=== PATIENT | male | born 1975 | race African-American/Black ===

== ENCOUNTER 2019-01-22 19:11 | Emergency (ER) | payer MEDICAID, SELFPAY ==
[2019-01-22 19:11] VITALS: BP 158/97; PULSE 84; RESP 16; TEMP 37; O2SAT 97; BMI 34.5
--- NOTE | 2019-01-22 19:28 | ED.VISSUMM ---
- ER Visit Summary Date of Service: 01/22/19 Chief Complaint: Pain in throat History of Present Illness: The patient is a 43 M who presents the emergency department with swelling sensation in his throat. Symptoms are present for 1 hour. He states this feels very similar to when he had an abscess in his throat. He states that prior to the hour before his arrival he felt fine. States is hard for him to swallow and feels like he is choking on something. He denies any significant medical problems other than chronic pain for which he uses medical marijuana. He does not smoke cigarettes. Physical Examination: Afebrile vital signs are stable Gen: Well-nourished well-developed Head: Normocephalic atraumatic Eyes: Perrl EOMI ENT: TMs clear no rhinorrhea moist mucous membranes there is no evidence of a retropharyngeal or peritonsillar abscess. There is no oral pharyngeal erythema. There is no tonsillar swelling or exudate. The uvula is edematous and elongated below the laceration the visualized part of the tongue. He is not drooling. He is able to lay back. there is no stridor Neck: Supple no lymphadenopathy no JVD nontender CVS: Regular rate rhythm no murmurs normal S1-S2 Respiratory: No distress clear to auscultation bilaterally chest nontender Abdomen: Soft nontender nondistended normal bowel sounds no masses Back: Nontender Extremity: Nontender no edema Skin: Normal color no rash Neuro: alert orientated ?3 CN II-XII intact normal strength sensation reflexes gait cerebellar Psych: Normal affect normal mood Emergency Department Course and Treatment: Patient will be given a dose of Decadron and Pepcid. He was instructed to take Benadryl at home. He was instructed on cold fluids. Return if worsening or concerns. Impression: 1. Uvulitis This note was generated with [employer] dictation software. It may contain incorrect words, spelling, and punctuation that were not noted in review of the chart prior to signing ED Disposition - Plan for ED Patient: Disposition: Home or Assisted Living Instructions: ED Uvulitis Referrals: Herber Velazquez MD [Primary Care Provider] - As Needed Additional Instructions: I would recommend you take Benadryl 25 mg every 6-8 hours for the next 2 days. I would also recommend Pepcid 20 mg twice a day. Drink plenty of ice cold fluids. return if worsening or concerns
[2019-01-22] MEDS: Famotidine 20 MG Tablet PO (19:30)
[2019-01-22] MEDS: dexAMETHasone 10 MG/ML Vial PO.IVFORM (19:30)
--- NOTE | 2019-01-22 19:32 | ED.DCSUM_ITS ---
- ER Visit Summary Date of Service: 01/22/19 Chief Complaint: Pain in throat History of Present Illness: The patient is a 43 M who presents the emergency department with swelling sensation in his throat. Symptoms are present for 1 hour. He states this feels very similar to when he had an abscess in his th roat. He states that prior to the hour before his arrival he felt fine. States is hard for him to swallow and feels like he is choking on something. He denies any significant medical problems other than chronic pain for which he uses medical marijuana. He does not smoke cigarettes. Physical Examination: Afebrile vital signs are stable Gen: Well-nourished well-developed Head: Normocephalic atraumatic Eyes: Perrl EOMI ENT: TMs clear no rhinorrhea moist mucous membranes there is no evidence of a retropharyngeal or peritonsillar abscess. There is no oral pharyngeal erythema. There is no tonsillar swelling or exudate. The uvula is edematous and elongated below the laceration the visualized part of the tongue. He is not drooling. He is able to lay back. there is no stridor Neck: Supple no lymphadenopathy no JVD nontender CVS: Regular rate rhythm no murmurs normal S1-S2 Respiratory: No distress clear to auscultation bilaterally chest nontender Abdomen: Soft nontender nondistended normal bowel sounds no masses Back: Nontender Extremity: Nontender no edema Skin: Normal color no rash Neuro: alert orientated ?3 CN II-XII intact normal strength sensation reflexes gait cerebellar Psych: Normal affect normal mood Emergency Department Course and Treatment: Patient will be given a dose of Decadron and Pepcid. He was instructed to take Benadryl at home. He was instructed on cold fluids. Return if worsening or concerns. Impression: 1. Uvulitis This note was generated with [employer] dictation software. It may contain incorrect words, spelling, and punctuation that were not noted in review of the chart prior to signing ED Disposition - Plan for ED Patient: Disposition: Home or Assisted Living Instructions: ED Uvulitis Referrals: Herber Velazquez MD [Primary Care Provider] - As Needed Additional Instructions: I would recommend you take Benadryl 25 mg every 6-8 hours for the next 2 days. I would also recommend Pepcid 20 mg twice a day. Drink plenty of ice cold fluids. return if worsening or concerns
[2019-01-22 19:34] VITALS: BP 180/78; PULSE 73; RESP 18; O2SAT 98
== END 2019-01-22 19:37 | disposition home or self-care (01) ==
PROVIDERS: Emergency Provider Emergency Medicine; Family Provider Family Medicine; PCP Family Medicine
DX: K12.2 Cellulitis and abscess of mouth (principal)
CPT/HCPCS: 99283

== ENCOUNTER 2019-06-17 23:18 | Emergency (ER) | payer OTHER, MEDICAID, SELFPAY ==
[2019-06-17 23:19] VITALS: BP 140/83; PULSE 88; RESP 18; TEMP 36.7; O2SAT 98; BMI 34.5
--- NOTE | 2019-06-17 23:31 | ED.VIS.GEN ---
History of Present Illness Chief Complaint: Abd Pain Narrative: Patient is a 44-year-old male who presents with abdominal pain. He complains of sharp and burning left lower quadrant abdominal pain for 2 to 3 days. He has also been having diarrhea he estimates 8 episodes yesterday and about 3 today. He noticed a small amount of bright red blood in his stool today. No fevers. He was mildly nauseated yesterday but no vomiting. He does have a history of recurrent diverticulitis with 2 prior bowel resections in 2009 and 2016. He had a bowel perforation in 2009 related to diverticulitis. He currently uses medical marijuana but takes no daily medications. Past Medical History - Allergies and Home Meds Allergies/Adverse Reactions: Allergies No Known Allergies Allergy (Verified 01/22/19 19:11) Primary Care Physician: Herber Velazquez MD [Primary Care Provider] - Past Medical History: None Surgical History: appendectomy, colectomy Smoking Status: Never smoker Review of Systems All systems negative except as indicated General: Denies: Fever Cardiovascular: Denies: Chest pain Respiratory: Denies: Dyspnea Gastrointestinal: Reports: Abdominal pain, Nausea, Diarrhea, Hematochezia. Denies: Vomiting Physical Exam Vital Signs/Narrative: Vital Signs Temp Pulse Resp BP Pulse Ox 06/17/19 23:19 98.0 F 88 18 140/83 H 98 Inital Vital Signs reviewed: Yes General: Well nourished Head: Normocephalic Eyes: EOMI ENT: Moist mucous membranes Cardiovascular: Regular rate, Regular rhythm Respiratory: No distress, CTA bilaterally Abdomen: Soft, Nontender, Nondistended, - - Laparotomy scar noted, no reproducible tenderness Skin: Normal color Neurological: Alert Psychological: Normal affect Diagnostic/Tx/Re-eval Impressions Abdomen/Pelvis CT 06/18/19 23:30 IMPRESSION: Findings suggestive of enterocolitis. Status post appendectomy. Scattered diverticulosis with no focal diverticulitis. No bowel obstruction. Electronically Signed: Nancy Mcdowell MD at 1:46 EDT , Service support , 06/18/19 23:30 Abdomen/Pelvis WITH Contrast [CT] Stat Laboratory Results 06/17/19 06/17/19 06/17/19 23:38 23:38 23:46 WBC 11.1 H RBC 4.94 Hgb 15.1 Hct 44.1 MCV 89.3 MCH 30.6 MCHC 34.2 RDW Std Deviation 42.8 RDW Coeff of Annie 13.1 Plt Count 279 MPV 9.4 Immature Gran % (Auto) 0.400 Neut % (Auto) 42.3 L Lymph % (Auto) 44.6 H [place] % (Auto) 9.9 Eos % (Auto) 2.3 Baso % (Auto) 0.5 Absolute Neuts (auto) 4.7 Absolute Lymphs (auto) 4.94 H Nucleated RBC % 0 Differential Comment SCANNED Reactive Lymphocytes RARE Sodium 142 Potassium 3.4 L Chloride 108 H Carbon Dioxide 26.0 Anion Gap 8 BUN 15 Creatinine 1.02 Estim Creat Clear Calc 100.38 Est GFR (MDRD) Af Amer 101 Est GFR (MDRD) Non-Af 84 BUN/Creatinine Ratio 14.7 Glucose 135 H Calcium 8.9 Urine Color Yellow Urine Clarity Clear Urine pH 6.0 Ur Specific [place] 1.025 Urine Protein 15 H Urine Glucose (UA) Normal Urine Ketones 5 H Urine Occult Blood 10 H Urine Nitrite Negative Urine Bilirubin Negative Urine Urobilinogen 1 H Ur Leukocyte Esterase Negative Urine RBC 0-5 SEEN Urine WBC 0 SEEN Ur Squamous Epith Cells 0 SEEN Urine Bacteria 0 SEEN Urine Mucus 0 SEEN - Medical Decision Making Labs as above notable for mild leukocytosis. CT shows inflammatory changes of the distal small bowel as well as some stranding and thickening of the colon suggestive of enterocolitis. Given patient's prior history we will treat with oral antibiotics but I feel he is appropriate for discharge. Patient understands to return for new or worsening symptoms he was advised on signs and symptoms to monitor for and was discharged home. ED Disposition - Plan for ED Patient: Disposition: Home or Assisted Living Diagnosis: Enterocolitis Prescriptions: Ciprofloxacin [Cipro] 500 mg PO BID #14 tab Prescription Printed metroNIDAZOLE [Flagyl] 500 mg PO Q8H #21 tab Prescription Printed Referrals: Herber Velazquez MD [Primary Care Provider] - Additional Instructions: Your work-up today showed some inflammation in your small and large intestine. You are prescribed antibiotics. Take these as prescribed. You should return if you develop new or worsening symptoms including but not limited to fevers, vomiting, worsening of abdominal pain, increased rectal bleeding. Follow-up with your primary care doctor.
[2019-06-17 23:43] LABS: Absolute Lymphocyte Count 4.94 X10^3/uL (0.83-4.51); Absolute Neutrophil Count 4.7 X10^3/uL (2.0-7.7); Basophil# 0.06 X10^3/uL; Basophil% 0.5 % (0-1); Eosinophil# 0.25 X10^3/uL; Eosinophils% 2.3 % (0-5); Hematocrit 44.1 % (40-54); Hemoglobin 15.1 g/dL (13.0-16.5); Lymphocyte # 4.94 X10^3/ul (4.0); Lymphocyte % 44.6 % (19-41); Mean Corp Hgb Conc 34.2 g/dL (32-36); Mean Corpuscular Hgb 30.6 pg (27.0-32.0); Mean Corpuscular Volume 89.3 fL (80-94); Mean Platelet Vol. 9.4 fl (6.2-12.0); Monocyte% 9.9 % (0-10); NRBC Flagged by Analyzer 0 % (0-5); Neutrophil # 4.68 X10^3/uL (2.7-7.7); Neutrophil % 42.3 % (47-70); POSITIVE MORPHOLOGY YES; Platelet Count 279 K/mm3 (150-450); RBC Distribution Width CV 13.1 % (11.6-14.6); RBC Distribution Width SD 42.8 fl (35.1-43.9); Red Blood Count 4.94 M/mm3 (4.6-6.2); White Blood Count 11.1 K/mm3 (4.4-11.0)
[2019-06-17 23:45] LABS: Differential Indicated SCAN CRITERIA MET
[2019-06-17] MEDS: Ondansetron 4 MG/2 ML Vial IV (23:50)
[2019-06-17] MEDS: 0.9% Normal Saline 1,000 ML 1000 ML IV (23:50)
[2019-06-17] MEDS: Morphine 4 MG/ML Syringe IV (23:51)
[2019-06-17 23:52] LABS: Bacteria 0 SEEN /hpf (None Seen); Mucous, Urine 0 SEEN /hpf (<or=2+); Squamous Epithelial Cells - UA 0 SEEN /hpf (0-5); White Blood Cells 0 SEEN /hpf (0-5)
[2019-06-17 23:53] LABS: Color, Urine Yellow (Yellow); Glucose, Dipstick Normal (Normal); Ketone-Dipstick 5 mg/dl (Negative); Leukocyte Esterase-Dipstick Negative /ul (Negative); Nitrite-Dipstick Negative (Negative); Occult Blood-Urine 10 /ul (Negative); Protein-Dipstick 15 mg/dl (Negative); Specific Gravity, Urine 1.025 (1.002-1.030); Urine Bilirubin Dipstick Negative (Negative); Urine Clarity Clear (Clear); Urine Urobilinogen 1 mg/dl (Normal)
[2019-06-17 23:56] LABS: Anion Gap 8 (5-15); BUN 15 mg/dL (7-18); BUN/Creat Ratio 14.7 RATIO (10-20); Calcium,Total 8.9 mg/dL (8.5-10.1); Chloride 108 mmol/L (98-107); Creatinine, Serum 1.02 mg/dL (0.70-1.30); EST Glomerular Filtration Rate 84 mL/min (>60); Est Glom Filt Rate - Afr Amer 101 mL/min (>60); Estimated Creatinine Clearance 100.38 ml/min; Glucose 135 mg/dL (74-106); Potassium 3.4 mmol/L (3.5-5.1); Sodium Level 142 mmol/L (136-145)
[2019-06-18 00:16] LABS: Red Blood Cells-Urine 0-5 SEEN /hpf (0-5)
[2019-06-18 00:20] LABS: Differential Comment SCANNED; Reactive Lymphocyte RARE
[2019-06-18] MEDS: metroNIDAZOLE 500 MG Tablet PO (02:05)
[2019-06-18] MEDS: Ciprofloxacin 500 MG Tablet PO (02:05)
[2019-06-18 02:11] VITALS: BP 133/84; PULSE 87; RESP 18; O2SAT 96
--- NOTE | 2019-06-18 23:30 | CT_ITS ---
STUDY: CT ABDOMEN AND PELVIS WITH CONTRAST REASON FOR EXAM: Male, 44 years old. Lower abdominal pain, diarrhea. RADIATION DOSAGE (If Supplied By Facility): CTDIvol = ( 23.71 ) mGy, DLP = ( 1403.60 ) mGycm TECHNIQUE: Transaxial images were obtained from the dome of the diaphragm to the symphysis pubis without oral contrast. Oral and amp; IV Readi-CAT and amp; 100mL Isovue-300 100ML was administered. Sagittal and coronal images were reconstructed. Individualized dose optimization techniques were used for this CT. COMPARISON: 11/26/2014. FINDINGS: There is mild bilateral lower lobe atelectasis. Remainder of the lung bases are clear. The visualized portions of the heart are within normal limits. Normal liver. Normal gallbladder and extrahepatic biliary system. Normal spleen. Normal pancreas. Normal bilateral adrenal glands. Normal right kidney. Normal left kidney. Normal visualized stomach. There is mild thickening of the wall of the distal aspect of the small bowel with minimal surrounding stranding suggestive of distal enteritis. There is decompression of the colon diffusely. There is mild stranding surrounding the colon with mild thickening of the wall suggestive of colitis. There are postoperative changes with sutures along the mid sigmoid. There is scattered diverticulosis. There are surgical clips in the region of the appendix consistent with a prior appendectomy. Normal abdominal aorta. Normal inferior vena cava. Normal retroperitoneum. Normal urinary bladder. Normal visualized prostate gland. There are postoperative changes of anterior ventral hernia. Normal osseous structures. CT/Abdomen/Pelvis WITH Contrast IMPRESSION: Findings suggestive of enterocolitis. Status post appendectomy. Scattered diverticulosis with no focal diverticulitis. No bowel obstruction. Electronically Signed: Nancy Mcdowell MD at 1:46 EDT , Service support ,
== END 2019-06-18 02:12 | disposition home or self-care (01) ==
PROVIDERS: Emergency Provider Emergency Medicine; Family Provider Family Medicine; PCP Family Medicine
DX: K52.9 Noninfective gastroenteritis and colitis, unspecified (principal); Z90.49 Acquired absence of other specified parts of digestive tract
CPT/HCPCS: 74177; 80048; 81001; 85025; 96361; 96374; 96375; 99284; J7030; Q9967; A4216; J2405

== ENCOUNTER 2020-03-17 20:01 | Emergency (ER) | payer MEDICAID, SELFPAY ==
[2020-03-17 20:03] VITALS: BP 154/65; PULSE 94; RESP 18; TEMP 35.9; BMI 34.6
[2020-03-17 20:05] VITALS: BP 154/65; PULSE 94; RESP 18; TEMP 35.9
--- NOTE | 2020-03-17 20:44 | ED.VISSUMM ---
- ER Visit Summary Date of Service: 03/17/20 Chief Complaint: Back pain History of Present Illness: The patient is a 45 M who reports that he has low back pain that began 5 days ago after he was playing in the pool with his children. States it is sharp pain with movement, but a aching constant pain. Is 10 out of 10 at worst an 8 out of 10 currently. Is worsened by movement or standing up straight. Is relieved by nothing. He denies any radiation to his legs. No numbness or weakness in his legs. No problems with his bowels or his bladder. No groin numbness. Patient denies any injury where he may have broken a bone. He has not fallen or been in a car accident. He denies any IV drug abuse. No fever, chills, or other red flags. Physical Examination: Vitals: Stable. Afebrile. General: A&O x 3. NAD. Cardiovascular exam: Regular rate and rhythm, no murmur, rub or gallop. Respiratory exam: Clear to auscultation bilaterally. No wheezes or stridor. Abdominal exam: Soft, nontender, nondistended, normal bowel sounds. No peritoneal signs. Back: Diffuse moderate tenderness to palpation over the lumbar spine and the paraspinous musculature in the lumbar region. No point tenderness. Negative straight leg bilaterally. 5/5 DF, PF, EHL bilaterally. Normal sensation to light touch throughout. Extremity: No clubbing, cyanosis, or edema. Emergency Department Course and Treatment: Patient was treated with naproxen and oxycodone. He is resting more comfortably. Treatment Plan: Patient will be discharged naproxen and oxycodone. He had a prolonged discussion about symptomatic care. He is instructed to use warm compresses and a TENS unit. Follow-up his primary care physician 1 week if not improving. The signs and symptoms of cauda equina syndrome were discussed and he is instructed return for these. Disposition: To home in improved and stable condition. Impression: 1. Low back pain, acute. This note was generated with [employer] software. It may contain incorrect words, spelling, and punctuation that were not noted in review of the chart prior to signing ED Disposition - Plan for ED Patient: Disposition: Home or Assisted Living Instructions: ED LUMBAR SPRAIN/STRAIN Prescriptions: Naproxen [Naprosyn] 500 mg PO BID #14 tab Prescription Printed Oxycodone HCl/Acetaminophen [Percocet 5/325] 1 tab PO Q6H PRN PRN 3 Days #12 tab PRN Reason: Pain Prescription Printed Referrals: Hilario Joyce MD [NON-STAFF] - 1 Week if not improving
[2020-03-17] MEDS: oxyCODONE 5 MG Tablet 10 MG PO (20:58)
[2020-03-17] MEDS: Naproxen 250 MG Tablet 500 MG PO (20:58)
== END 2020-03-17 21:20 | disposition home or self-care (01) ==
LOC: ED 20:45
PROVIDERS: Emergency Provider Emergency Medicine; PCP Family Medicine
DX: M54.5 Low back pain (principal)
CPT/HCPCS: 99283

== ENCOUNTER 2020-12-21 10:23 | Emergency (ER) | payer OTHER, MEDICAID, SELFPAY ==
[2020-12-21 10:24] VITALS: BP 167/89; PULSE 89; RESP 20; TEMP 36.8; O2SAT 95; BMI 32.5
--- NOTE | 2020-12-21 10:49 | EKG12_ITS ---
Test Reason : CP Blood Pressure : / mmHG Vent. Rate : 074 BPM Atrial Rate : 074 BPM P-R Int : 156 ms QRS Dur : 102 ms QT Int : 372 ms P-R-T Axes : 043 044 037 degrees QTc Int : 412 ms Normal sinus rhythm Nonspecific T wave abnormality Abnormal ECG Confirmed by YUNIOR COPE, JUDIT ([id number]), sound editor ARON BOWERS ([id number]) on 12/25/2020 12:19:45 PM Referred By: ÁNGEL Confirmed By:JUDIT MOJICA MD
[2020-12-21 10:57] LABS: Absolute Lymphocyte Count 3.16 X10^3/uL (0.83-4.51); Absolute Neutrophil Count 6.8 X10^3/uL (2.0-7.7); Basophil# 0.06 X10^3/uL; Basophil% 0.5 % (0-1); Eosinophil# 0.23 X10^3/uL; Hematocrit 44.7 % (40-54); Hemoglobin 15.1 g/dL (13.0-16.5); Lymphocyte # 3.16 X10^3/ul (0.83-4.51); Mean Corp Hgb Conc 33.8 g/dL (32-36); Mean Corpuscular Hgb 29.8 pg (27.0-32.0); Mean Corpuscular Volume 88.3 fL (80-94); Mean Platelet Vol. 9.6 fl (6.2-12.0); Monocyte# 1.38 X10^3/uL; Monocyte% 11.8 % (0-10); NRBC Flagged by Analyzer 0 % (0-5); Neutrophil # 6.84 X10^3/uL (2.7-7.7); Neutrophil % 58.4 % (47-70); Platelet Count 304 K/mm3 (150-450); RBC Distribution Width CV 13.5 % (11.6-14.6); RBC Distribution Width SD 43.8 fl (35.1-43.9); Red Blood Count 5.06 M/mm3 (4.6-6.2); White Blood Count 11.7 K/mm3 (4.4-11.0)
[2020-12-21 11:09] LABS: Anion Gap 4 (5-15); BUN 12 mg/dL (7-18); BUN/Creat Ratio 13.2 RATIO (10-20); Calcium,Total 8.9 mg/dL (8.5-10.1); Chloride 110 mmol/L (98-107); Creatinine, Serum 0.91 mg/dL (0.70-1.30); EST Glomerular Filtration Rate 95 mL/min (>60); Est Glom Filt Rate - Afr Amer 115 mL/min (>60); Estimated Creatinine Clearance 111.33 ml/min; Glucose 123 mg/dL (74-106); Potassium 3.5 mmol/L (3.5-5.1); Sodium Level 141 mmol/L (136-145)
[2020-12-21 11:14] LABS: BNP,B-Type NATRIURETIC PEPTIDE 13.3 pg/mL (0-100)
[2020-12-21] MEDS: Aspirin 81 MG TAB.CHEW 324 MG PO (11:15)
--- NOTE | 2020-12-21 11:28 | RAD_ITS ---
STUDY: X-RAY CHEST REASON FOR EXAM: Male, 45 years old. Worsening midsternal chest pain. TECHNIQUE: Single AP portable view of the chest. COMPARISON: None. FINDINGS: EKG electrodes are seen. Patchy left lower lobe infiltrate. There is no demonstrated pleural abnormality. Normal size heart. Normal mediastinum and bryanna. Normal visualized pulmonary arteries. Normal visualized aortic arch and descending thoracic aorta. Normal visualized thoracic spine. Normal visualized ribs, clavicles, and shoulders. There is no demonstrated abnormality of the visualized soft tissue structures of the upper abdomen. RAD/Chest 1 View (Portable) IMPRESSION: There is a patchy left lower lobe infiltrate. Electronically Signed: Daniel Diallo MD at 12:05 EDT , Service support ,
--- NOTE | 2020-12-21 11:44 | EDS_ITS ---
HPI History of Present Illness Chief Complaint: Chest Pain Narrative Patient is a 45-year-old male with history of tobacco use and hypertension, no longer on medications, presenting with chest pain. Patient developed chest pain last night and his left chest. It radiates to his back. It is worse when he takes a deep breath. Is also worse when he lays on his left side. He denies associated cough or difficulty breathing. He denies any swelling of his feet. He denies any fever chills. Patient does smoke cigarettes. Has a family history of heart disease on father side. No other complaints at this time. No history of DVT or PE. No sick contacts. [facility] Medical History (Updated 12/21/20 @ 18:[address] Elise Garcia, DO) Diverticula of colon Home Medications naproxen 500 mg PO BID #14 tab 03/17/20 [Rx Last Taken Unknown] doxycycline hyclate 100 mg PO BID #14 tab 12/21/20 [Rx Last Taken Unknown] Allergy/AdvReac Type Severity Reaction Status Date / Time No Known Allergies Allergy Verified 12/21/20 10:27 Surgical History (Updated 12/21/20 @ 11:18 by Jodi Persaud) History of colectomy Social History Smoking Status: Current every day smoker [facility] ED Constitutional Constitutional ED: Denies chills or fever(s) ENT ENT ED: Denies ear pain, rhinorrhea or sore throat Cardiovascular Cardiovascular: Reports chest pain and other; Denies orthopnea or palpitations Respiratory/Chest Respiratory/Chest: Reports dyspnea; Denies cough, dyspnea on exertion, orthopnea or sputum Gastrointestinal Gastrointestinal: Denies abdominal pain, diarrhea, nausea or vomiting Genitourinary Genitourinary ED: Denies dysuria or hematuria Musculoskeletal Musculoskeletal: Denies arthralgias or myalgias Integumentary Denies rash Neurologic Neurologic: Denies headache(s) or weakness Psychiatric Psychiatric: Denies anxiety or depression EXAM Physical Exam Const Vital Signs: 12/21/20 10:24 12/21/20 11:19 12/21/20 12:32 Temperature 98.3 F Temperature Source Temporal Pulse Rate 89 65 Respiratory Rate 20 H 16 Respiratory Pattern Normal Blood Pressure 167/89 H 128/81 H Blood Pressure Mean 115 96 Pulse Ox 95 97 Oxygen Delivery Method Room Air Room Air 12/21/20 14:22 Temperature Temperature Source Pulse Rate 69 Respiratory Rate 16 Respiratory Pattern Blood Pressure 151/89 H Blood Pressure Mean 109 Pulse Ox 97 Oxygen Delivery Method Room Air HEENT normocephalic and atraumatic Eyes PERRL and EOMs intact bilaterally Neck supple and no JVD Chest Wall inspection of chest normal Chest Narrative: left chest wall Chest: tenderness Resp normal respiratory effort Effort and Inspection: respiratory distress Cardio regular rate and regular rhythm GI normal to inspection, nondistended, normoactive bowel sounds Back/Spine no CVA tenderness Extremity normal to inspection General Extremety ED: Negative for edema General Extremity: Negative for edema Neuro oriented x3 Sensorium / Orientation: awake and alert Psych mental status grossly normal Skin no rashes or lesions noted Heart Score History: Slightly/Non-Suspicious ECG: Normal Age: >45 - <65 years Risk Factors: 1 or 2 Risk Factors Troponin: </= Normal Limit Score: 2 MDM MDM MDM Narrative Medical decision making narrative: Patient is evaluated for chest pain started last night. It has been constant. He appears nontoxic in no acute distress. The chest pain is quite localized to his left chest radiates to his back it is pleuritic in nature. D-dimer obtained which is elevated. Chest x-ray shows a left-sided infiltrate. CTA shows infiltrate but no signs of infarct or PE. Patient is ambulating emergency room and does not have any hypoxia. He is well- appearing I think a good candidate for outpatient treatment. Patient is treated with doxycycline. I suspect his pain is from his pneumonia and I do not think it is cardiac. His troponin is negative. Patient is given first dose of doxycycline emergency room. Lab Data Labs: Laboratory Results - last 24 hr 12/21/20 12/21/20 12/21/20 10:43 10:43 10:43 WBC 11.7 H RBC 5.06 Hgb 15.1 Hct 44.7 MCV 88.3 MCH 29.8 MCHC 33.8 RDW Std Deviation 43.8 RDW Coeff of Annie 13.5 Plt Count 304 MPV 9.6 Immature Gran % (Auto) 0.300 Neut % (Auto) 58.4 Lymph % (Auto) 27.0 [place] % (Auto) 11.8 H Eos % (Auto) 2.0 Baso % (Auto) 0.5 Absolute Neuts (auto) 6.8 Absolute Lymphs (auto) 3.16 Nucleated RBC % 0 D-Dimer Quant (PE/DVT) Sodium 141 Potassium 3.5 Chloride 110 H Carbon Dioxide 27.0 Anion Gap 4 L BUN 12 Creatinine 0.91 Estim Creat Clear Calc 111.33 Est GFR (MDRD) Af Amer 115 Est GFR (MDRD) Non-Af 95 BUN/Creatinine Ratio 13.2 Glucose 123 H Calcium 8.9 Troponin I < 0.015 B-Natriuretic Peptide 13.3 12/21/20 10:45 WBC RBC Hgb Hct MCV MCH MCHC RDW Std Deviation RDW Coeff of Annie Plt Count MPV Immature Gran % (Auto) Neut % (Auto) Lymph % (Auto) [place] % (Auto) Eos % (Auto) Baso % (Auto) Absolute Neuts (auto) Absolute Lymphs (auto) Nucleated RBC % D-Dimer Quant (PE/DVT) 0.72 H* Sodium Potassium Chloride Carbon Dioxide Anion Gap BUN Creatinine Estim Creat Clear Calc Est GFR (MDRD) Af Amer Est GFR (MDRD) Non-Af BUN/Creatinine Ratio Glucose Calcium Troponin I B-Natriuretic Peptide Radiography Chest X-Ray - ED: 1 View, Read by ED Physician, Read by Radiologist and Left Infiltrate Diagnostic Testing: Radiology Impression Chest X-Ray 12/21/20 11:28 IMPRESSION: There is a patchy left lower lobe infiltrate. Electronically Signed: Daniel Diallo MD at 12:05 EDT , Service support , Chest CTA 12/21/20 12:21 IMPRESSION: No evidence of pulmonary embolism. Focal infiltrate in the posterior aspect of the lingular segment of the left upper lobe with increased markings in the left lower lobe. Electronically Signed: Daniel Diallo MD at 12:57 EDT , Service support , Rhythm Strip Rhythm Strip: Sinus Rhythm Rate: 74 Ectopy: None EKG Initial EKG: Attestation: I personally reviewed and interpreted this EKG as follows: Interpretation: Sinus Rhythm Comments: Normal sinus rhythm at a rate of 74 Normal axis Normal intervals Normal ST segments Nonspecific T wave inversion in 3 Discharge Plan Triage Chief Complaint: Chest Pain ED Provider: Godman,Elise Dx/Rx/DC Orders Clinical Impression: Left upper lobe pneumonia, Chest pain, pleuritic Instructions: ED Pleurisy, ED Pneumonia (Adult) Prescriptions: New doxycycline hyclate 100 mg tablet 100 mg PO BID Qty: 14 RF: 0 No Action naproxen 500 MG tablet 500 mg PO BID Qty: 14 RF: 0 Primary Care Provider: Thien Singh Referrals: Thien Singh MD [Primary Care Provider] - Disposition Disposition: Home, self care Discharge Date/Time: 12/21/20 15:25
[2020-12-21 12:06] LABS: D-Dimer Quantitative (DVT/PE) 0.72 FEU/ug/m (0.27-0.49)
--- NOTE | 2020-12-21 12:21 | CT_ITS ---
STUDY: CTA CHEST REASON FOR EXAM: Male, 45 years old. Elevated dimer RADIATION DOSAGE (If Supplied By Facility): CTDIvol = ( 15.04 ) mGy, DLP = ( 491.86 ) mGycm TECHNIQUE: The examination was performed with the intravenous administration of IV 100mL Isovue-370. Post-processing of the angiographic images was performed, with multiplanar reformation and 3D reconstruction. Individualized dose optimization techniques were used for this CT. COMPARISON: None. FINDINGS: Normal enhancement of the main pulmonary artery and right and left pulmonary arteries. Normal enhancement of the bilateral peripheral pulmonary arteries. There is no demonstrated pulmonary embolism. Normal thoracic aorta and visualized great vessels. There is no demonstrated aortic dissection. Normal heart and pericardium. Normal mediastinum. Normal hilar regions. Normal visualized trachea and bronchi. The lungs are well expanded. Focal infiltrate in the posterior aspect of the lingular segment of the left lower lobe. Mild increased markings at the left lung base. Normal pleura. Normal chest wall structures. Normal osseous structures. Normal visualized upper abdomen. CT/CTA Chest W/WO Contrast IMPRESSION: No evidence of pulmonary embolism. Focal infiltrate in the posterior aspect of the lingular segment of the left upper lobe with increased markings in the left lower lobe. Electronically Signed: Daniel Diallo MD at 12:57 EDT , Service support ,
[2020-12-21 12:32] VITALS: BP 128/81; PULSE 65; RESP 16; O2SAT 97
[2020-12-21 13:36] VITALS: O2SAT 99
[2020-12-21 14:22] VITALS: BP 151/89; PULSE 69; RESP 16; O2SAT 97
[2020-12-21] MEDS: Doxycycline 100 MG CAPSULE PO (14:41)
== END 2020-12-21 15:25 | disposition home or self-care (01) ==
PROVIDERS: Emergency Provider Emergency Medicine; PCP Internal Medicine
DX: J18.9 Pneumonia, unspecified organism (principal); R07.9 Chest pain, unspecified; F17.210 Nicotine dependence, cigarettes, uncomplicated
CPT/HCPCS: 71045; 71275; 80048; 83880; 84484; 85025; 85379; 87426; 93005; 99285; Q9967; A4216

== ENCOUNTER 2021-01-09 19:58 | Emergency (ER) | payer OTHER, MEDICAID, SELFPAY ==
[2021-01-09 19:59] VITALS: BP 159/80; PULSE 91; RESP 18; TEMP 36.9; O2SAT 95; BMI 33.9
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
[2021-01-09 22:07] VITALS: RESP 16
[2021-01-09] MEDS: diazePAM 5 MG Tablet PO (22:11)
[2021-01-09] MEDS: Ketorolac 60 MG/2 ML Vial IM (22:11)
[2021-01-09 22:22] VITALS: BP 133/65; PULSE 74; RESP 18; TEMP 36.6; O2SAT 98
== END 2021-01-09 22:44 | disposition home or self-care (01) ==
LOC: ED 20:15
PROVIDERS: Emergency Provider Emergency Medicine; PCP Internal Medicine
DX: S16.1XXA Strain of muscle, fascia and tendon at neck level, initial encounter (principal); S39.012A Strain of muscle, fascia and tendon of lower back, initial encounter; S00.03XA Contusion of scalp, initial encounter; G44.209 Tension-type headache, unspecified, not intractable; Z87.891 Personal history of nicotine dependence; V43.52XA Car driver injured in collision with other type car in traffic accident, initial encounter; Y93.I9 Activity, other involving external motion; Y92.410 Unspecified street and highway as the place of occurrence of the external cause; Y99.8 Other external cause status
CPT/HCPCS: 70450; 72125; 96372; 99282

== ENCOUNTER 2022-05-04 19:43 | Emergency (ER) | payer BC, MEDICAID, SELFPAY ==
[2022-05-04 19:44] VITALS: BP 128/77; PULSE 94; RESP 16; TEMP 36.1; O2SAT 98; BMI 33.9
--- NOTE | 2022-05-04 20:16 | CT_ITS ---
STUDY: CT ABDOMEN AND PELVIS WITH CONTRAST ENHANCEMENT OF 2116 HOURS ON 05/04/2022 REASON FOR EXAM: 47-year-old male with abdominal pain. RADIATION DOSAGE (If Supplied By Facility): CTDIvol = ( 18.70 ) mGy, DLP = ( 1393.97 ) mGycm TECHNIQUE: Transaxial images were obtained from the dome of the diaphragm to the symphysis pubis without oral contrast. 100 mL of Isovue 370 was administered intravenously for this study. Sagittal and coronal images were reconstructed. Individualized dose optimization techniques were used for this CT. COMPARISON: None. FINDINGS: The visualized lung bases are unremarkable. The visualized portions of the heart are within normal limits. Normal liver. Partially contracted gallbladder and normal extrahepatic biliary system. No cholelithiasis or cholecystitis. Normal spleen. Normal pancreas. No pancreatitis or pancreatic mass lesions. Normal kidneys without obstructive uropathy or pyelonephritis. Normal right kidney. Normal left kidney. Food filled stomach Normal small intestine. No diverticulitis, colitis, or intestinal obstruction. Previous appendectomy. Normal abdominal aorta. Normal inferior vena cava. Normal retroperitoneum. Normal near empty urinary bladder. Small left inguinal hernia containing fat. Normal abdominal wall. Normal osseous structures. CT/Abdomen/Pelvis W IV Cont ONLY IMPRESSION: 1. No cholelithiasis or cholecystitis. 2. No pancreatitis or pancreatic mass lesions. 3. Normal kidneys without obstructive uropathy or pyelonephritis. 4. Previous appendectomy. 5. No diverticulitis, colitis, intestinal obstruction. 6. Small left inguinal hernia containing fat. 7. No other abnormalities. Electronically Signed: Raymundo Diaz MD at 22:52 EDT ,
--- NOTE | 2022-05-04 20:17 | EX.ED.DYSGE1 ---
HPI History of Present Illness Chief Complaint: Abd Pain Informant: patient Narrative Narrative: Patient presents with concern for hernia and also some abdominal discomfort. He has a history of colon resection twice for diverticulitis. 1 was acute and 1 was scheduled. He was on vacation in [place] recently. He started smoking medical or marijuana. This caused him to cough very hard for a few days. He thinks he created a hernia next to his incision. He stopped smoking the marijuana and the coughing stopped. But he is also had some mild diarrhea. He has had some aching in the abdomen. When he stands up he feels fullness near his umbilicus that is new. He is still eating and drinking. No fevers or chills. PFSH PFSH Medical History Diverticula of colon Smoker Home Medications etodolac 400 mg tablet (Lodine) 400 mg PO BID 05/04/22 [History Last Taken Unknown] tadalafil 5 mg tablet (Cialis) 5 mg PO DAILY 05/04/22 [History Last Taken Unknown] Allergy/AdvReac Type Severity Reaction Status Date / Time No Known Allergies Allergy Verified 05/04/22 19:46 Surgical History History of cholecystectomy History of colectomy Social History Smoking Status: Current every day smoker tobacco type: cigarettes substance use type: does not use ROS ROS ED Constitutional Constitutional ED: Denies chills or fever(s) Eyes Eyes: Denies change in vision ENT ENT ED: Denies rhinorrhea Cardiovascular Cardiovascular: Denies chest pain or palpitations Respiratory/Chest Respiratory/Chest: Denies cough or dyspnea Gastrointestinal Gastrointestinal: Reports abdominal pain and diarrhea; Denies constipation, melena, nausea or vomiting Genitourinary Genitourinary ED: Denies dysuria or hematuria Musculoskeletal Musculoskeletal: Denies back pain Integumentary Denies rash Neurologic Neurologic: Denies headache(s) Endocrine Endocrinology: Denies polydipsia or polyuria Hematologic/Lymphatic Hematologic/Lymphatic: Denies easy bleeding or easy bruising Allergic/Immunologic Allergic/Immunologic ED: Denies urticaria EXAM Physical Exam Const Vital Signs: 05/04/22 19:44 Temperature 97 F L Temperature Source Temporal Pulse Rate 94 Respiratory Rate 16 Blood Pressure 128/77 H Blood Pressure Mean 94 Pulse Ox 98 Oxygen Delivery Method Room Air Positive well nourished and well developed General Appearance ED: well developed and NAD; Negative for pallor Eyes General Eye ED: Negative for scleral icterus Neck no lymphadenopathy Chest Wall inspection of chest normal Resp normal respiratory effort and clear to auscultation bilaterally Cardio regular rate and regular rhythm GI normal to inspection, nondistended, normoactive bowel sounds and non-tender GI Narrative: Patient really has no notable tenderness. He points to the right side of his incision as the area that swells on occasion when he stands up. When I have him strain, I can feel an area of the abdominal wall to the right of his incision near the umbilicus that becomes more prominent. This is a bit of an incisional hernia. But it spontaneously reduces. He does have some lower abdominal discomfort but no notable tenderness. Back/Spine no CVA tenderness Extremity normal to inspection General Extremety ED: Negative for tenderness Neuro oriented x3 Psych mental status grossly normal Skin General Skin Exam: Negative for jaundice or pallor MDM MDM MDM Narrative Medical decision making narrative: Patient CBC shows a minimal nonspecific elevation of the white count. Electrolytes show minimal decreased potassium that will self-correct with diet. Glucose 124. LFTs are normal. Your and is normal. CT showed some hernia but he is not having pain at that area. The hernia is only contain fat. This can be followed up. I went back talk with the patient. He was sound asleep. We will have him follow-up with his surgeon. He stated the Dr. Ariza did his prior partial colectomy Lab Data Attestation: I reviewed the patient's lab results. Labs: Laboratory Results - last 24 hr 05/04/22 05/04/22 05/04/22 20:24 20:24 20:54 WBC 12.2 H RBC 4.95 Hgb 15.0 Hct 44.9 MCV 90.7 MCH 30.3 MCHC 33.4 RDW Std Deviation 46.4 H RDW Coeff of Annie 13.8 Plt Count 267 MPV 9.5 Immature Gran % (Auto) 0.300 Neut % (Auto) 50.7 Lymph % (Auto) 37.4 [place] % (Auto) 9.9 Eos % (Auto) 1.5 Baso % (Auto) 0.2 Absolute Neuts (auto) 6.2 Absolute Lymphs (auto) 4.55 H Nucleated RBC % 0 Atypical Lymphocytes 1+ Reactive Lymphocytes 1+ Platelet Estimate ADEQUATE RBC Morphology N CHROM Anisocytosis RARE Macrocytosis RARE Sodium 145 Potassium 3.4 L Chloride 111 H Carbon Dioxide 28.0 Anion Gap 6 BUN 11 Creatinine 1.00 Estim Creat Clear Calc 99.16 Est GFR (MDRD) Af Amer 103 Est GFR (MDRD) Non-Af 85 BUN/Creatinine Ratio 11.0 Glucose 124 H Calcium 9.0 Total Bilirubin 0.30 AST 13 L ALT 31 Alkaline Phosphatase 88 Total Protein 6.7 Albumin 3.5 Globulin 3.2 Albumin/Globulin Ratio 1.1 Urine Color Yellow Urine Clarity Clear Urine pH 5.0 Ur Specific [place] 1.025 Urine Protein 15 H Urine Glucose (UA) Normal Urine Ketones 5 H Urine Occult Blood Negative Urine Nitrite Negative Urine Bilirubin Negative Urine Urobilinogen 1 H Ur Leukocyte Esterase Negative Urine RBC 0 SEEN Urine WBC 0 SEEN Ur Squamous Epith Cells 0 SEEN Urine Bacteria 0 SEEN Urine Mucus 0 SEEN Radiography Diagnostic Testing: Clinical Impression(s) from Imaging Studies Abdomen/Pelvis CT 05/04/22 20:16 IMPRESSION: 1. No cholelithiasis or cholecystitis. 2. No pancreatitis or pancreatic mass lesions. 3. Normal kidneys without obstructive uropathy or pyelonephritis. 4. Previous appendectomy. 5. No diverticulitis, colitis, intestinal obstruction. 6. Small left inguinal hernia containing fat. 7. No other abnormalities. Electronically Signed: Raymundo Diaz MD at 22:52 EDT Reading Location ID and State: [address] [place] [address] Tel , Service support , Discharge Plan Triage Chief Complaint: Abd Pain ED Provider: Josse Peterson Dx/Rx/DC Orders Clinical Impression: Abdominal pain, Incisional hernia, Inguinal hernia Instructions: ED Hernia (Adult) Prescriptions: No Action etodolac [Lodine] 400 mg Tablet 400 mg PO BID tadalafil [Cialis] 5 mg Tablet 5 mg PO DAILY Primary Care Provider: Thien Singh Referrals: Eyad Ariza MD [Med Staff - Active Staff] - 1 Week Thien Singh MD [Primary Care Provider] - Disposition Disposition: Home, Self Care
[2022-05-04 20:32] LABS: Absolute Lymphocyte Count 4.55 X10^3/uL (0.83-4.51); Absolute Neutrophil Count 6.2 X10^3/uL (2.0-7.7); Basophil# 0.03 X10^3/uL; Basophil% 0.2 % (0-1); Eosinophil# 0.18 X10^3/uL; Eosinophils% 1.5 % (0-5); Hematocrit 44.9 % (40-54); Lymphocyte # 4.55 X10^3/ul (0.83-4.51); Lymphocyte % 37.4 % (19-41); Mean Corp Hgb Conc 33.4 g/dL (32-36); Mean Corpuscular Hgb 30.3 pg (27.0-32.0); Mean Corpuscular Volume 90.7 fL (80-94); Mean Platelet Vol. 9.5 fl (6.2-12.0); Monocyte% 9.9 % (0-10); NRBC Flagged by Analyzer 0 % (0-5); Neutrophil # 6.17 X10^3/uL (2.7-7.7); Neutrophil % 50.7 % (47-70); POSITIVE MORPHOLOGY YES; Platelet Count 267 K/mm3 (150-450); RBC Distribution Width CV 13.8 % (11.6-14.6); RBC Distribution Width SD 46.4 fl (35.1-43.9); Red Blood Count 4.95 M/mm3 (4.6-6.2); White Blood Count 12.2 K/mm3 (4.4-11.0)
[2022-05-04 20:36] LABS: Differential Indicated SCAN CRITERIA MET
[2022-05-04] MEDS: Ondansetron 4 MG/2 ML Vial IV (20:47)
[2022-05-04 20:48] LABS: ALB/GLOB Ratio 1.1 RATIO (0.9-2.4); AST(SGOT) 13 U/L (15-37); Alanine Aminotransfer ALT/SGPT 31 U/L (16-61); Albumin, Serum 3.5 g/dL (3.2-5.0); Alkaline Phosphatase 88 U/L (45-117); Anion Gap 6 (5-15); BUN 11 mg/dL (7-18); Chloride 111 mmol/L (98-107); EST Glomerular Filtration Rate 85 mL/min (>60); Est Glom Filt Rate - Afr Amer 103 mL/min (>60); Estimated Creatinine Clearance 99.16 ml/min; Globulin 3.2 g/dL (2.2-4.2); Glucose 124 mg/dL (74-106); Potassium 3.4 mmol/L (3.5-5.1); Protein, Total 6.7 g/dL (6.4-8.2); Sodium Level 145 mmol/L (136-145)
[2022-05-04 20:57] LABS: Bacteria 0 SEEN /hpf (None Seen); Mucous, Urine 0 SEEN /hpf (<or=2+); Red Blood Cells-Urine 0 SEEN /hpf (0-5); Squamous Epithelial Cells - UA 0 SEEN /hpf (0-5); White Blood Cells 0 SEEN /hpf (0-5)
[2022-05-04 20:58] LABS: Color, Urine Yellow (Yellow); Glucose, Dipstick Normal (Normal); Ketone-Dipstick 5 mg/dl (Negative); Leukocyte Esterase-Dipstick Negative /ul (Negative); Nitrite-Dipstick Negative (Negative); Occult Blood-Urine Negative /ul (Negative); Protein-Dipstick 15 mg/dl (Negative); Specific Gravity, Urine 1.025 (1.002-1.030); Urine Bilirubin Dipstick Negative (Negative); Urine Clarity Clear (Clear); Urine Urobilinogen 1 mg/dl (Normal)
[2022-05-04 20:58] LABS: Anisocytosis RARE; Atypical Lymphocyte 1+ %; Macrocytosis RARE; Platelet Estimate ADEQUATE (ADEQ); Reactive Lymphocyte 1+; Red Cell Morphology N CHROM NORMAL (NORM C&C)
[2022-05-05 00:40] VITALS: BP 118/78; PULSE 87; RESP 14; O2SAT 97
== END 2022-05-05 00:49 | disposition home or self-care (01) ==
PROVIDERS: Emergency Provider Emergency Medicine; PCP Internal Medicine; Visit Provider Emergency Medicine
DX: K43.2 Incisional hernia without obstruction or gangrene (principal); K40.90 Unilateral inguinal hernia, without obstruction or gangrene, not specified as recurrent; F17.210 Nicotine dependence, cigarettes, uncomplicated; Z23 Encounter for immunization
CPT/HCPCS: 74177; 80053; 81001; 85025; 90471; 96374; 99285; J7030; Q9967; A4216; J2405

== ENCOUNTER 2024-09-26 09:04 | Emergency (ER) | payer MEDICAID, SELFPAY ==
[2024-09-26 09:05] VITALS: BP 150/107; PULSE 95; RESP 18; TEMP 36.4; O2SAT 97; BMI 33.9
--- NOTE | 2024-09-26 09:44 | CT_ITS ---
PROCEDURE: ABDOMEN/PELVIS W IV CONT ONLY REASON FOR EXAM: Pain TECHNIQUE: Abdomen and pelvis CT with intravenous contrast. COMPARISON: None. FINDINGS: Lung bases: Clear Liver: Unremarkable. Gallbladder: Unremarkable. Spleen: Unremarkable. Pancreas: Unremarkable. Adrenals: Unremarkable. Kidneys: Unremarkable. Bladder: Unremarkable. Reproductive Organs: Unremarkable. Hernia repair. Bowel demonstrates diverticulosis with procedural changes. No evidence of obstruction. Lymph nodes: No suspicious lymph node enlargement. Vasculature: Major vascular structures are unremarkable. Peritoneum / Retroperitoneum: No ascites. No free air. Bones: Unremarkable. CT/Abdomen/Pelvis W IV Cont ONLY IMPRESSION: No acute CT process. One or more dose reduction techniques were used (e.g., Automated exposure contr ol, adjustment of the mA and/or kV according to patient size, use of iterative reconstruction technique). Reading Location: [facility] [address]
--- NOTE | 2024-09-26 09:44 | EX.ED.DYSGE1 ---
HPI History of Present Illness Chief Complaint: Abd Pain Narrative Narrative: Chief complaint and HPI: Abdominal pain. 49-year-old male with history of diverticulitis status post colon resection x 2, cannabis abuse presents for evaluation of left lower quadrant abdominal pain. Patient states that his last colonoscopy was in 2017. He states that he recently traveled to [place] and shortly after returning developed left lower quadrant abdominal pain and watery diarrhea. Onset of symptoms Friday. Patient denies any blood in the stool. He states he thought it was his diverticulitis so he placed himself on a liquid diet for the past several days. He states his diarrhea has remained watery. Pain is worse with eating. He denies any fever, chills, chest pain, shortness of breath, nausea, vomiting, dysuria, hematuria. Triage note states that he was having nausea and vomiting but again patient denied. Denies any recent antibiotic usage. Patient states that he did eat local food but denies drinking any of the water or having ice and any drinks while traveling. Review of systems: See HPI Medications: As listed on the chart Allergies: As listed on the chart PFSH: Per chart Vital signs: As listed on the chart. Reviewed. Physical exam: Gen: A&O x3, NAD Head: Normocephalic, atraumatic Eyes: No sclera icterus, conjunctiva clear ENT: Moist mucous membranes Neck: Trachea midline, No JVD CV: RRR, no murmurs, no peripheral edema Resp: Lungs CTA BL, no w/r/c GI: Abd soft, non-distended, mildly tender to palpation of left lower quadrant, no r/r/g : No CVA tenderness Musc: Full ROM, no deformity Skin: Warm, dry Neuro: Alert, oriented, grossly intact, sensation intact Psych: Cooperative, appropriate mood and affect [facility] Medical History (Updated 09/26/24 @ 13:[address] Cj Anderson, DO) Smoker Diverticula of colon Home Medications ?Medication ?Instructions ?Recorded ?Last Taken ?Type etodolac 400 mg tablet (Lodine) 400 mg PO BID 05/04/22 Unknown History tadalafil 5 mg tablet (Cialis) 5 mg PO DAILY 05/04/22 Unknown History potassium chloride 20 mEq 40 meq (2 x 20 mEq) PO DAILY 3 02/02/25 Unknown Rx tablet,extended release days #6 tabs Allergy/AdvReac Type Severity Reaction Status Date / Time No Known Allergies Allergy Verified 09/26/24 09:05 Surgical History (Updated 05/05/22 @ 00:45 by Gay Almonte) History of appendectomy History of colectomy Social History Smoking Status: Former smoker substance use type: does not use EXAM Physical Exam Const Vital Signs: 09/26/24 09:05 09/26/24 10:08 09/26/24 11:00 Temperature 97.6 F L 98.0 F 98.1 F Temperature Source Temporal Temporal Temporal Pulse Rate 95 79 70 Respiratory Rate 18 20 H 16 Blood Pressure 150/107 H 137/87 H 140/90 H Blood Pressure Mean 121 103 106 Pulse Ox 97 98 99 Oxygen Delivery Method Room Air Room Air Room Air 09/26/24 12:00 Temperature 97.4 F L Temperature Source Temporal Pulse Rate 74 Respiratory Rate 16 Blood Pressure 123/72 H Blood Pressure Mean 89 Pulse Ox 100 Oxygen Delivery Method Room Air MDM MDM MDM Narrative Medical decision making narrative: 49-year-old male with history of diverticulitis status post colon resection x 2, cannabis abuse presents for evaluation of left lower quadrant abdominal pain. Associated symptom is watery diarrhea and recent travel. Differential diagnosis includes but is not limited to diverticulitis, colitis, obstruction, pancreatitis, UTI, travelers diarrhea, ova and parasite, suspect less likely C. difficile however on the differential. Morphine, Zofran, NS bolus ordered for symptoms. Laboratory workup ordered including stool studies with CT abdomen pelvis. CBC without leukocytosis or anemia. CMP with hypokalemia of 2.8. Patient given 40 mEq p.o. potassium as well as 10 mill equivalents IV potassium. This is likely secondary to his diarrhea. No transaminitis. Lipase unremarkable. UA negative for UTI. CT abdomen pelvis shows no acute intra-abdominal process. Patient has diverticulosis without diverticulitis. No obstruction. Patient has not had a bowel movement or any diarrhea here in the emergency department therefore C. difficile and stool studies unable to be performed. At this point in time, no clear etiology to explain patient's symptoms. I suspect he may have travelers diarrhea. On reevaluation, pain has improved. Patient is stable to discharge home. Patient was educated on following up with PCP. He will be prescribed 3 days of potassium replacement. He was given a prescription to have his potassium repeated in 3 days. He confirmed understanding. Return precautions explained. Impression: 1. Abdominal 2. Diarrhea with recent travel, suspect traveler's diarrhea 3. Asymptomatic hypokalemia Lab Data Labs: Laboratory Results - last 24 hr 09/26/24 09/26/24 09:24 12:25 WBC 9.7 RBC 5.48 Hgb 16.1 Hct 46.7 MCV 85.2 MCH 29.4 MCHC 34.5 RDW Std Deviation 41.4 RDW Coeff of Annie 13.2 Plt Count 379 MPV 9.6 Immature Gran % (Auto) 0.400 Neut % (Auto) 49.6 Lymph % (Auto) 35.3 [place] % (Auto) 12.2 H Eos % (Auto) 2.0 Baso % (Auto) 0.5 Absolute Neuts (auto) 4.8 Absolute Lymphs (auto) 3.43 Nucleated RBC % 0 Sodium 141 Potassium 2.8 L Chloride 109 H Carbon Dioxide 22.0 Anion Gap 10 BUN 14 Creatinine 1.13 Estim Creat Clear Calc 101.74 Est GFR (MDRD) Af Amer 88 Est GFR (MDRD) Non-Af 73 BUN/Creatinine Ratio 12.4 Glucose 134 H Calcium 9.3 Total Bilirubin 0.50 AST 16 ALT 47 Alkaline Phosphatase 88 Total Protein 7.7 Albumin 3.7 Globulin 4.0 Albumin/Globulin Ratio 0.9 Lipase 30 Urine Color Yellow Urine Clarity Clear Urine pH 6.5 Ur Specific [place] 1.010 Urine Protein 15 H Urine Glucose (UA) Normal Urine Ketones Negative Urine Occult Blood 10 H Urine Nitrite Negative Urine Bilirubin Negative Urine Urobilinogen Normal Ur Leukocyte Esterase 25 H Urine RBC 0 SEEN Urine WBC 0-5 SEEN Ur Squamous Epith Cells 0-5 SEEN Urine Bacteria 0 SEEN Urine Mucus 0 SEEN Radiography Diagnostic Testing: Clinical Impression(s) from Imaging Studies Abdomen/Pelvis CT 09/26/24 09:44 IMPRESSION: No acute CT process. One or more dose reduction techniques were used (e.g., Automated exposure control, adjustment of the mA and/or kV according to patient size, use of iterative reconstruction technique). Reading Location: [facility] Discharge Plan Triage Chief Complaint: Abd Pain ED Provider: Cj Anderson Dx/Rx/DC Orders Clinical Impression: Abdominal pain, Diarrhea Instructions: ED Traveler's Diarrhea (Adult), ED Abdominal Pain Unkn Cause Male... Prescriptions: New potassium chloride 20 mEq tablet extended release 40 meq PO DAILY 3 Days Qty: 6 0RF No Action etodolac [Lodine] 400 mg Tablet 400 mg PO BID tadalafil [Cialis] 5 mg Tablet 5 mg PO DAILY Other Ambulatory Orders: Basic Metabolic Profile (BMP) (Routine) Timeframe: 3 Days Facility: [facility] - Location: Laboratory Ordered By: Dr. Cj Anderson Primary Care Provider: Thien Singh Referrals: Thien Singh MD [Primary Care Provider] - 3-5 Days Activity Restrictions/Additional Instructions: Follow-up with your primary care physician for your symptoms as well as low potassium. You will need your potassium rechecked. Order was placed. Potassium prescription ordered for the next 3 days. Return back to the ED if symptoms change or worsen. Print Language: Guyanese Disposition Disposition: Home, Self Care
[2024-09-26 09:57] LABS: Absolute Lymphocyte Count 3.43 X10^3/uL (0.83-4.51); Absolute Neutrophil Count 4.8 X10^3/uL (2.0-7.7); Basophil# 0.05 X10^3/uL; Basophil% 0.5 % (0-1); Eosinophil# 0.19 X10^3/uL; Hematocrit 46.7 % (40-54); Hemoglobin 16.1 g/dL (13.0-16.5); Lymphocyte # 3.43 X10^3/ul (0.83-4.51); Lymphocyte % 35.3 % (19-41); Mean Corp Hgb Conc 34.5 g/dL (32-36); Mean Corpuscular Hgb 29.4 pg (27.0-32.0); Mean Corpuscular Volume 85.2 fL (80-94); Mean Platelet Vol. 9.6 fl (6.2-12.0); Monocyte# 1.18 X10^3/uL; Monocyte% 12.2 % (0-10); NRBC Flagged by Analyzer 0 % (0-5); Neutrophil # 4.82 X10^3/uL (2.7-7.7); Neutrophil % 49.6 % (47-70); Platelet Count 379 K/mm3 (150-450); RBC Distribution Width CV 13.2 % (11.6-14.6); RBC Distribution Width SD 41.4 fl (35.1-43.9); Red Blood Count 5.48 M/mm3 (4.6-6.2); White Blood Count 9.7 K/mm3 (4.4-11.0)
[2024-09-26] MEDS: 0.9% Normal Saline (1000mL) 1,000 ML 999 ML IV (09:57)
[2024-09-26] MEDS: Ondansetron 4 MG/2 ML Vial IV (09:57)
[2024-09-26] MEDS: Morphine 4 MG/ML Syringe IV (09:58)
[2024-09-26 10:08] VITALS: BP 137/87; PULSE 79; RESP 20; TEMP 36.7; O2SAT 98
[2024-09-26 10:15] LABS: ALB/GLOB Ratio 0.9 RATIO (0.9-2.4); AST(SGOT) 16 U/L (15-37); Alanine Aminotransfer ALT/SGPT 47 U/L (16-61); Albumin, Serum 3.7 g/dL (3.2-5.0); Alkaline Phosphatase 88 U/L (45-117); Anion Gap 10 (5-15); BUN 14 mg/dL (7-18); BUN/Creat Ratio 12.4 RATIO (10-20); Calcium,Total 9.3 mg/dL (8.5-10.1); Chloride 109 mmol/L (98-107); Creatinine, Serum 1.13 mg/dL (0.70-1.30); EST Glomerular Filtration Rate 73 mL/min (>60); Est Glom Filt Rate - Afr Amer 88 mL/min (>60); Estimated Creatinine Clearance 101.74 ml/min; Glucose 134 mg/dL (74-106); Lipase 30 U/L (13-75); Potassium 2.8 mmol/L (3.5-5.1); Protein, Total 7.7 g/dL (6.4-8.2); Sodium Level 141 mmol/L (136-145)
[2024-09-26 11:00] VITALS: BP 140/90; PULSE 70; RESP 16; TEMP 36.7; O2SAT 99
[2024-09-26] MEDS: Potassium Chloride Oral Soln 20 MEQ/15 ML UDC 40 MEQ PO (11:05)
[2024-09-26] MEDS: Potassium Chloride 10mEq/100mL 10 MEQ/100 ML IV.SOLN. 100 MEQ IV BOLUS (11:05)
[2024-09-26 12:00] VITALS: BP 123/72; PULSE 74; RESP 16; TEMP 36.3; O2SAT 100
[2024-09-26 12:31] LABS: Bacteria 0 SEEN /hpf (None Seen); Mucous, Urine 0 SEEN /hpf (<or=2+); Red Blood Cells-Urine 0 SEEN /hpf (0-5)
[2024-09-26 12:33] LABS: Color, Urine Yellow (Yellow); Glucose, Dipstick Normal (Normal); Ketone-Dipstick Negative (Negative); Leukocyte Esterase-Dipstick 25 /ul (Negative); Nitrite-Dipstick Negative (Negative); Occult Blood-Urine 10 /ul (Negative); Protein-Dipstick 15 mg/dl (Negative); Urine Bilirubin Dipstick Negative (Negative); Urine Clarity Clear (Clear); Urine Urobilinogen Normal (Normal); Urine pH 6.5 (5.0 - 8.0)
[2024-09-26 12:44] LABS: Squamous Epithelial Cells - UA 0-5 SEEN /hpf (0-5); White Blood Cells 0-5 SEEN /hpf (0-5)
[2024-09-26 13:21] VITALS: BP 170/90; PULSE 87; RESP 17; TEMP 36.2; O2SAT 99
== END 2024-09-26 13:31 | disposition home or self-care (01) ==
PROVIDERS: Emergency Provider Surgery; PCP Internal Medicine; Visit Provider Surgery
DX: R10.32 Left lower quadrant pain (principal); R19.7 Diarrhea, unspecified; E87.6 Hypokalemia; F12.10 Cannabis abuse, uncomplicated; Z90.49 Acquired absence of other specified parts of digestive tract; Z87.19 Personal history of other diseases of the digestive system; Z87.891 Personal history of nicotine dependence
CPT/HCPCS: 74177; 80053; 81001; 83690; 85025; 96361; 96365; 96366; 96375; 99283; Q9967; A4216; J2405